=== PATIENT | female | born 1960 | race Caucasian/White ===

== ENCOUNTER → 2022-07-04 | Outpatient (CLI) | payer BC ==
--- NOTE | 2022-07-05 11:58 | MR ---
EXAMINATION TYPE: MR neck wo/w con DATE OF EXAM: 07/04/2022 3:52 PM COMPARISON: None CLINICAL INDICATION:Female, 62 years old with history of dysphagia; NECK PAIN AND HARD TIME SWALLOWI NG, PT STATED HAS SWELLING INSIDE THROAT TECHNIQUE: Multi planar, multi sequence imaging was performed of the neck soft tissues. MR contrast: IV Contrast: 8 cc Gadavist FINDINGS: Motion artifact limits evaluation. Tonsils bilaterally right greater than left. The glottis appears u nremarkable. Several nonenlarged anterior chain lymph nodes are identified, a prominent one on the r ight measures up to 8 mm in short axis. There is no evidence to suggest a soft tissue mass. The cervical vertebral bodies have preserved heights and alignment. The cervical spinal cord demonst rates a normal appearance. Right high T2 signal thyroid nodule measuring 11 mm. IMPRESSION: 1. Lingual tonsil enlargement bilaterally. Given patient's age further evaluation with direct visuali zation is recommended. 2. Prominent right neck lymph node measuring up to 8 mm in short axis. 3. Right thyroid nodule which can be further evaluated with thyroid ultrasound.
== END | disposition home or self-care (01) ==
LOC: RADMRIMAIN 13:57
PROVIDERS: ATTEND Otolaryngology
DX: J35.1 Hypertrophy of tonsils (principal); E04.1 Nontoxic single thyroid nodule
CPT/HCPCS: 70543; A9585

== ENCOUNTER 2022-07-29 11:09 | Day surgery (SDC) | payer BC ==
[2022-07-26 15:50] VITALS: BMI 28.3
--- NOTE | 2022-07-28 21:22 | HP ---
HISTORY AND PHYSICAL CHIEF COMPLAINT: Tonsillar mass/base of tongue mass. HISTORY OF PRESENT ILLNESS: This patient is a 62-year-old female who was recently seen in my office complaining of having issues with food getting stuck in her throat and also pills getting stuck in her throat. She denied any pain. The patient at the time she was seen in the office, stated that she had quit smoking approximately 2 or 3 years ago, but she still smokes occasionally. I advised her to quit smoking completely for obvious health reasons. A CT scan was performed at a primary care doctor's office and showed evidence of mild emphysema. In addition, barium swallow showed evidence of a bulging disk at C3 and C4 as well as some possible distal stricture of the esophagus. An MRI was subsequently performed and this showed evidence of bilateral enlargement of the tonsils and possible enlargement of the lingual tonsil. The patient states that she had both her tonsils and adenoids removed as a child. I advised the patient that sometimes tonsils are removed and tags are left behind which may eventually hypertrophy. The patient was not complaining of any sore throat or throat pain, but because of her history of continued smoking, it was recommended that she undergo a suspension microlaryngoscopy and biopsy of any tonsillar masses that are found. If in fact these are tonsillar tags, these will be removed. In addition to this, she will have several blind biopsies of the base of tongue. PAST MEDICAL HISTORY: Reveals the patient has no allergies to medications. PREVIOUS SURGERIES: Include tonsillectomy, adenoidectomy, cholecystectomy, left arthroscopic knee surgery, and hysterectomy. She has 3 para, 3 , 0 , 0 miscarriage. CURRENT MEDICATIONS: Include, 1. Singulair. 2. Prilosec. 3. Synthroid. 4. Lasix. 5. Norvasc. 6. Protonix. 7. She also uses an inhaler, the name of which she cannot recall. REVIEW OF SYSTEMS: Reveals, CARDIOVASCULAR: Positive for hypertension. RESPIRATORY: Positive for emphysema, possible asthma. GASTROINTESTINAL: Positive for GERD (gastroesophageal reflux disorder). METABOLIC/ENDOCRINE: Positive for hypothyroidism. Remainder of the review of systems is unremarkable. PHYSICAL EXAMINATION: GENERAL: The patient is a pleasant 62-year-old female who is alert and cooperative. HEENT: The patient is normocephalic. Tympanic membranes are normal. Middle ear space is free of any fluid or infection. Pupils are equal, round, and reactive to light and accommodation. Extraocular movements within normal limits. Intranasal examination reveals [id number]-ldqcqg septal deviation with compensatory hypertrophy of the inferior turbinates and a moderate amount of mucus on the mucous membranes draining down the posterior pharynx. Examination of the oropharynx is unremarkable. Attempted indirect laryngoscopy was not possible because of the patient's hyperactive gag reflex. NECK: Palpation of the neck is negative for any neck masses or lymphadenopathy. Cranial nerves 2 through 12, remainder of the head and neck exam is unremarkable. CHEST/CARDIOVASCULAR: Both lung dewitt are clear to percussion and auscultation. The patient is in regular sinus rhythm. S1 and S2 are present without any murmurs, S3s or S4s. Peripheral pulses are bilaterally symmetrical. ABDOMEN: No evidence of any masses, megaly, or tenderness. The abdomen is soft. SKIN: Unremarkable. MUSCULOSKELETAL: Within normal limits. NEUROLOGICAL: Within normal limits. PELVIC AND RECTAL: Deferred at this time because the patient has this done on a regular basis at her family physician's office. The remainder of physical exam is essentially unremarkable. IMPRESSION: Bilateral tonsillar mass/base of tongue mass. PLAN: The patient is scheduled to undergo a suspension microlaryngoscopy with biopsy of bilateral tonsillar mass and base of tongue mass and possible excision of tonsillar tags under general anesthesia in the a.m. Attention, RNs in the pre-surgical area: I have ordered for this patient to receive 1000 mg of Ofirmev IV to be given once an intravenous line has been established. In addition, I have ordered for this patient to receive 3 g of Ancef IV once the IV has been established. If the pharmacy department sends a different pre-surgical prophylactic antibiotic to the pre-surgical area for this patient, besides Ancef, please cancel that order and return the medication to the pharmacy department. Also please make sure that the patient's account is credited appropriately. INFORMED CONSENT: I have discussed the risks, benefits and alternative therapies for the above-mentioned procedure and for both sedation/analgesia as well as necessary blood product administration, if indicated, as they pertain to this patient. The patient has indicated her understanding and acceptance of the risks and procedures discussed. MMODL / IJN: [id number] /
[~2022-07-29 11:09] MED LIST: DEXAMETHASONE SOD PHOSPHATE 4 MG/ML 1 ML VIAL IV ONE; HYDROmorphone 0.5 MG/0.5 ML SYRINGE IVP PRN; LACTATED RINGERS 1,000 ML IV SCH; MIDAZOLAM 2 MG/2 ML VIAL IV PRN; ONDANSETRON 4 MG/2 ML VIAL IVP ONE; Pre Op ABX Message 1 EACH MISC MISCELLANE ONE; SCOPOLAMINE 1 MG/72 HR PATCH TRANSDERM ONE
[2022-07-29 12:06] VITALS: BP 129/77; PULSE 67; RESP 16; TEMP 97.8
[2022-07-29] MEDS ORDERED: ACETAMINOPHEN IV (For NPO) 1,000 MG in EMPTY BAG 1 BAG IVPB ONE (12:20)
== END 2022-07-29 13:38 | disposition home or self-care (01) ==
LOC: OR 11:09
PROVIDERS: ATTEND Otolaryngology
DX: D10.1 Benign neoplasm of tongue (principal); Z53.8 Procedure and treatment not carried out for other reasons
CPT/HCPCS: J1100; J2405

== ENCOUNTER 2022-09-01 12:24 | Day surgery (SDC) | payer BC ==
[2022-09-01 13:33] VITALS: RESP 18; TEMP 98.7
[2022-09-01 14:14] VITALS: BP 134/70; PULSE 66
--- NOTE | 2022-09-01 14:15 | US ---
ULTRASOUND GUIDED FNA THYROID BIOPSY: CLINICAL HISTORY: Right thyroid nodule FINDINGS: The procedure was explained to the patient. The risks, complications, benefits and alternatives were discussed and any questions were answered. Informed consent was obtained. Patient was placed supin e on the ultrasound table and prepped and draped in the usual sterile fashion. Utilizing a 25 gauge needle, five passes were made into the requested right thyroid nodule. Patient was stable throughout the procedure. Pathology is pending. All elements of maximal barrier technique were utilized. IMPRESSION: 1. Successful ultrasound guided FNA thyroid biopsy.
== END 2022-09-01 14:15 | disposition home or self-care (01) ==
LOC: RADPROMAIN 12:24
PROVIDERS: ATTEND Family Medicine
DX: E04.1 Nontoxic single thyroid nodule (principal)
CPT/HCPCS: 10005; 88173; 88305

== ENCOUNTER 2022-09-12 12:11 | Day surgery (SDC) | payer BC ==
[2022-09-08 12:09] VITALS: BMI 27.4
[~2022-09-12 12:11] MED LIST changes: -DEXAMETHASONE SOD PHOSPHATE 4 MG/ML 1 ML VIAL IV ONE; -HYDROmorphone 0.5 MG/0.5 ML SYRINGE IVP PRN; -MIDAZOLAM 2 MG/2 ML VIAL IV PRN; -ONDANSETRON 4 MG/2 ML VIAL IVP ONE; -Pre Op ABX Message 1 EACH MISC MISCELLANE ONE; -SCOPOLAMINE 1 MG/72 HR PATCH TRANSDERM ONE
[2022-09-12 13:06] VITALS: TEMP 96.9
[2022-09-12] MEDS ORDERED: LIDOCAINE 2% INJ 20 MG/ML (2 ML VIAL) ONE (14:25)
[2022-09-12] MEDS ORDERED: PROPOFOL 10 MG/ML 20 ML VIAL IV ONE (14:25)
--- NOTE | 2022-09-12 14:43 | P.OP ---
Date of Procedure: 09/12/22 Preoperative Diagnosis: GERD Postoperative Diagnosis: Antral gastritis Mild esophagitis No significant Hiatal hernia Procedure(s) Performed: EGD Anesthesia: MAC Surgeon: Shaheen Fink Pathology: other (Antrum) Condition: stable Disposition: PACU Description of Procedure: The patient's placed on the endoscopy table in the lateral position. She received IV sedation. The gastro-/oropharynx passed in the esophagus and stomach. Scope was then placed through the pylorus. The first and second portion of the duodenum appeared normal. Scope was then brought back the antrum this was mildly inflamed. A biopsies performed. The scope was then retroflexed and the remainder the stomach appeared normal. There was no significant hiatal hernia. The GE junction was at 40 cms. The distal esophagus appeared minimally inflamed. A biopsies performed. The proximal esophagus appeared normal. Scope withdrawn for patient.
[2022-09-12 14:51] VITALS: RESP 16
[2022-09-12 15:01] VITALS: BP 135/83; PULSE 83
== END 2022-09-12 15:19 | disposition home or self-care (01) ==
LOC: ORWHC2ENDO 12:11
PROVIDERS: ATTEND Surgery
DX: K29.50 Unspecified chronic gastritis without bleeding (principal); K21.00 Gastro-esophageal reflux disease with esophagitis, without bleeding; I10 Essential (primary) hypertension; J44.9 Chronic obstructive pulmonary disease, unspecified; M79.7 Fibromyalgia; G47.33 Obstructive sleep apnea (adult) (pediatric); Z90.710 Acquired absence of both cervix and uterus; Z90.49 Acquired absence of other specified parts of digestive tract; Z98.890 Other specified postprocedural states; Z87.891 Personal history of nicotine dependence; Z79.899 Other long term (current) drug therapy
CPT/HCPCS: 88305; 43239; J2704; J2001

== ENCOUNTER 2022-09-28 07:26 | Inpatient (IN) | payer BC, MEDICARE ==
[~2022-09-28 07:26] MED LIST changes: +ACETAMINOPHEN TAB 500 MG TAB PO PRN; +HEPARIN SODIUM,PORCINE/PF 5,000 UNIT/0.5 ML SYRINGE SQ PRN; -LACTATED RINGERS 1,000 ML IV SCH
[2022-09-28] MEDS ORDERED: LIDOCAINE 1% (10MG/ML) FOR IV START INTRADERMA PRN (08:02)
[2022-09-28] MEDS ORDERED: ONDANSETRON 4 MG/2 ML VIAL IVP ONE (08:02)
[2022-09-28] MEDS ORDERED: LACTATED RINGERS 1,000 ML IV ONE (08:06)
[2022-09-28] MEDS ORDERED: DEXAMETHASONE SOD PHOSPHATE 4 MG/ML 1 ML VIAL IVP ONE (08:25)
[2022-09-28 09:20] LABS: Basophils # (A) 0.1 k/uL (0-0.2); Basophils % (A) 1 %; Eosinophils # (A) 0.2 k/uL (0-0.7); Eosinophils % (A) 2 %; HCT 43.7 % (34.0-46.0); HGB 14.6 gm/dL (11.4-16.0); Lymphocytes # (A) 2.8 k/uL (1.0-4.8); Lymphocytes % (A) 26 %; MCH 29.6 pg (25.0-35.0); MCHC 33.4 g/dL (31.0-37.0); MCV 88.6 fL (80.0-100.0); Mean Platelet Volume 8.4; Monocytes # (A) 0.7 k/uL (0-1.0); Monocytes % (A) 7 %; Neutrophils # (A) 6.6 k/uL (1.3-7.7); Neutrophils % (A) 63 %; Platelet Count 285 k/uL (150-450); RBC 4.93 m/uL (3.80-5.40); RDW 12.8 % (11.5-15.5); WBC 10.5 k/uL (3.8-10.6)
[2022-09-28 09:22] LABS: African American GFR (CKD) >90 (>60 ml/min/1.73 sqM); Anion Gap 6 mmol/L; Blood Urea Nitrogen 9 mg/dL (7-17); Carbon Dioxide 26 mmol/L (22-30); Chloride 107 mmol/L (98-107); Glucose 103 mg/dL (74-99); Non-African American GFR(CKD) >90 (>60 ml/min/1.73 sqM); Potassium 4.7 mmol/L (3.5-5.1); Sodium 139 mmol/L (137-145)
[2022-09-28] MEDS ORDERED: LIDOCAINE 2% INJ 20 MG/ML (2 ML VIAL) ONE (09:40)
[2022-09-28] MEDS ORDERED: PROPOFOL 10 MG/ML 20 ML VIAL IV ONE (09:40)
[2022-09-28] MEDS ORDERED: SUCCINYLCHOLINE CHLORIDE 200 MG/10 ML VIAL IV ONE (09:40)
[2022-09-28] MEDS ORDERED: ROCURONIUM 10 MG/ML (5 ML VIAL) IV ONE (09:40)
[2022-09-28] MEDS ORDERED: GLYCOPYRROLATE 0.2 MG/ML 2 ML VIAL ONE (09:40)
[2022-09-28] MEDS ORDERED: NEOSTIGMINE 1 MG/ML 10 ML VIAL ONE (09:40)
[2022-09-28] MEDS ORDERED: MIDAZOLAM 2 MG/2 ML VIAL ONE (09:40)
[2022-09-28] MEDS ORDERED: fentaNYL (PF) 50 MCG/ML 2 ML AMP ONE (09:40)
[2022-09-28] MEDS ORDERED: KETAMINE 10 MG/ML 20 ML VIAL ONE (09:40)
[2022-09-28] MEDS ORDERED: BUPIVACAINE (PF) 0.25% 30 ML VIAL SQ ONE ×2 (10:11→10:34)
[2022-09-28] MEDS: LACTATED RINGERS 1,000 ML IV SCH (10:42)
--- NOTE | 2022-09-28 10:54 | P.OP ---
Date of Procedure: 09/28/22 Preoperative Diagnosis: GERD Postoperative Diagnosis: GERD Procedure(s) Performed: Laparoscopic Clyde fundoplication Anesthesia: SUKHDEV Surgeon: Shaheen Fink Estimated Blood Loss (ml): 5 Pathology: none sent Condition: stable Disposition: PACU Description of Procedure: Katherinehe patient was placed on the operating table in the supine position. The patient received general anesthesia. And was placed in dorsal lithotomy position. The patient was prepped and draped in the usual sterile fashion. The skin incision sites were anesthetized with 1% local Xylocaine. The skin was incised in the left periumbilical area and then using a blade less 5 mm trocar under direct visualization panel cavity was entered. After adequate insufflation the laparoscope was then placed into the peritoneal cavity. Next a 5 mm trochars placed in the right epigastric position. Another 5 millimeter trocar the right lateral position. Another 5 millimeter trocar in the left lateral position a 5 mm trocar is placed in the left epigastric position. And then the initial 5 mm trocar was exchanged for a 10 mm trocar. The left lateral lobe liver was retracted. The hernia was seen. The crural defect was then dissected using the Harmonic scissors device. A 360 crural dissection was performed the esophagus stomach was reduced back into the peritoneal Cavity. The crural defect was then closed using 2-0 Ethibond suture. Next the fundus of the stomach was mobilized using the [place] scissors device. and then a 58- Malagasy bougie dilator was placed oropharynx passed into the esophagus and stomach the fundal plication wrap was then performed by grasping the fundus posteriorly and bringing it around the esophagus and stomach fundoplication was then performed using 2-0 Ethibond suture. Care was taken that the fundal location rested over top of the intra-abdominal esophagus. There was no injury seen to the stomach or esophagus. The dilator was then withdrawn. The abdomen was irrigated there is no bleeding seen. The trochars were then withdrawn and then skin incision sites were closed using 3-0 Monocryl suture Steri-Strips are applied. Patient thought procedure well and sent to recovery room in stable condition.
[2022-09-28] MEDS ORDERED: ONDANSETRON 4 MG/2 ML VIAL IVP PRN (10:55)
[2022-09-28] MEDS: HYDROmorphone 0.5 MG/0.5 ML SYRINGE IVP PRN ×2 (11:05→11:21)
[2022-09-28] MEDS: D5-0.45% NACL WITH KCL 20MEQ/L 1,000 ML IV SCH (14:40)
[2022-09-28] MEDS: HYDROmorphone 1 MG/ML 1 ML SYRINGE IVP PRN ×2 (14:40→17:30)
[2022-09-28] MEDS: IPRATROPIUM-ALBUTEROL 3 ML NEB INHALATION SCH ×2 (16:34→20:35)
[2022-09-28] MEDS: PANTOPRAZOLE 40 MG TABLET PO SCH (17:30)
[2022-09-29] MEDS: D5-0.45% NACL WITH KCL 20MEQ/L 1,000 ML IV SCH ×2 (00:49→08:30)
--- NOTE | 2022-09-29 00:57 | CONS ---
CONSULTATION HISTORY OF PRESENT ILLNESS: A 62-year-old white female with consultation, status post Clyde fundoplication. The patient is breathing decent at this time. She has COPD, and difficulty breathing. She is exacerbated by chronic GERD, status post Clyde . Chest pain is minimal with air in the chest postop. She wants to increase her diet. HOME MEDICINES: Include, 1. Norvasc 10 mg daily. 2. Protonix 40 mg b.i.d. 3. Lasix 40 mg daily. 4. Vitamin D3 one weekly. 5. Breztri inhaler 2 puffs b.i.d. 6. Ventolin nebulizer b.i.d. CONDITION: Stable. PROGNOSIS: Guarded. Ambulate as tolerated. REVIEW OF SYSTEMS: A 14-point review of systems otherwise negative. PHYSICAL EXAMINATION: VITAL SIGNS: Pulse is 58, respiratory rate 16 to 18, blood pressure 130s over 60s to 70s, O2 of 97% on room air. LUNGS: Congestive cough, mild wheeze. CARDIOVASCULAR: S1, S2. HEMATOLOGY: Negative Homans. PSYCH: Fair mood and affect. NEUROLOGIC: Alert and oriented x3. OPHTHALMOLOGIC: Pupils equal, round, reactive. ASSESSMENT AND PLAN: Status post Clyde, chronic obstructive pulmonary disease, gastroesophageal reflux disease, hypertension. Continue home medications. Breathing treatments p.r.n. At this time, advance diet as tolerated. Condition stable. MMODL / IJN: [id number] /
[2022-09-29] MEDS: PANTOPRAZOLE 40 MG TABLET PO SCH (06:40)
[2022-09-29] MEDS ORDERED: HYDROcodone/APAP 5-325MG 1 EACH TAB PO PRN (07:55)
[2022-09-29] MEDS: LACTATED RINGERS 1,000 ML IV SCH (08:31)
[2022-09-29] MEDS ORDERED: amLODIPine 10 MG TAB PO SCH (09:00)
[2022-09-29] MEDS ORDERED: FUROSEMIDE 40 MG TAB PO SCH (09:00)
[2022-09-29] MEDS: IPRATROPIUM-ALBUTEROL 3 ML NEB INHALATION SCH ×2 (09:46→12:37)
[2022-09-29 11:20] VITALS: BMI 27.8
--- NOTE | 2022-09-29 13:12 | P.DS ---
Providers Date of admission: 09/28/22 07:26 Expected date of discharge: 09/29/22 Attending physician: Shaheen Fink Consults: 09/28/22 10:55 Consult Physician Routine Consulting Provider: Antolin Williamson Consult Reason/Comments: Medical management Do you want consulting provider notified?: Yes Primary care physician: Antolin Williamson [facility] Course: Discharge diagnosis 1. GERD Hospital course This is a 62-year-old female known history of GERD. She is status post laparoscopic Clyde fundoplication. Patient tolerated surgery well. Pain is controlled. She has been up and ambulating. She is tolerating diet. She is afebrile. She is having flatus. She is stable for discharge. Please refer to chart for further details. Physician Desizing Machine Operator note has been reviewed by physician. Signing provider agrees with the documented findings, assessment, and plan of care. Patient Condition at Discharge: Stable Plan - Discharge Summary Discharge Rx Participant: Yes New Discharge Prescriptions: New oxyCODONE HCL [OxyIR] 5 mg PO Q6H PRN 3 Days #12 tab PRN Reason: Pain Acetaminophen Tab [Tylenol Tab] 650 mg PO Q4H PRN #30 tablet PRN Reason: Pain Continue Furosemide [Lasix] 40 mg PO DAILY Albuterol Nebulized [Ventolin Nebulized] 2.5 mg INHALATION BID amLODIPine [Norvasc] 10 mg PO DAILY Cholecalciferol (Vitamin D3) [Vitamin D3] 1 cap PO WEEKLY Pantoprazole [Protonix] 40 mg PO BID Budesonide/Glycopyr/Formoterol [Breztri Aerosphere Inhaler] 1 puff INHALATION BID Discontinued Omeprazole 40 mg PO DAILY Discharge Medication List amLODIPine [Norvasc] 10 mg PO DAILY 07/26/22 [History] Cholecalciferol (Vitamin D3) [Vitamin D3] 1 cap PO WEEKLY 08/26/22 [History] Pantoprazole [Protonix] 40 mg PO BID 08/26/22 [History] Albuterol Nebulized [Ventolin Nebulized] 2.5 mg INHALATION BID 09/08/22 [History] Budesonide/Glycopyr/Formoterol [Breztri Aerosphere Inhaler] 1 puff INHALATION BID 09/08/22 [History] Furosemide [Lasix] 40 mg PO DAILY 09/08/22 [History] Acetaminophen Tab [Tylenol Tab] 650 mg PO Q4H PRN #30 tablet 09/29/22 [Rx] oxyCODONE HCL [OxyIR] 5 mg PO Q6H PRN 3 Days #12 tab 09/29/22 [Rx] Follow up Appointment(s)/Referral(s): Shaheen Fink MD [STAFF PHYSICIAN] - 1 Week Activity/Diet/Wound Care/Special Instructions: No driving while taking OxyIr No lifting over 10 pounds Shower daily. No soaking or tub baths for 2 weeks Very light activity until you are reevaluated at your follow up appointment with your surgeon Continue on a Full liquid diet until seen by surgeon Discharge Disposition: HOME SELF-CARE
[2022-09-29 13:33] VITALS: BP 122/67; PULSE 84; RESP 17; TEMP 98.6
== END 2022-09-29 14:27 | disposition home or self-care (01) | DRG 328 ==
LOC: 2ORMAIN 07:26 → 4SSUR 13:20
PROVIDERS: ADMIT Surgery; ATTEND Surgery
PROC: 0DV44ZZ Restriction of Esophagogastric Junction, Percutaneous Endoscopic Approach (ICD-10-PCS; principal; 2022-09-28 10:20)
DX: K21.00 Gastro-esophageal reflux disease with esophagitis, without bleeding (principal); J44.9 Chronic obstructive pulmonary disease, unspecified; I10 Essential (primary) hypertension; M79.7 Fibromyalgia; G47.30 Sleep apnea, unspecified; Z79.4 Long term (current) use of insulin; J45.909 Unspecified asthma, uncomplicated; Z79.899 Other long term (current) drug therapy; Z90.49 Acquired absence of other specified parts of digestive tract; Z90.710 Acquired absence of both cervix and uterus
CPT/HCPCS: 80048; 85025; 94640

== ENCOUNTER 2023-01-02 11:10 | Day surgery (SDC) | payer BC, MEDICARE ==
[2022-12-29 09:38] VITALS: BMI 24.1
[~2023-01-02 11:10] MED LIST changes: -ACETAMINOPHEN TAB 500 MG TAB PO PRN; -HEPARIN SODIUM,PORCINE/PF 5,000 UNIT/0.5 ML SYRINGE SQ PRN; +LACTATED RINGERS 1,000 ML IV SCH
[2023-01-02 12:05] VITALS: TEMP 98
[2023-01-02] MEDS ORDERED: LIDOCAINE 2% INJ 20 MG/ML (2 ML VIAL) ONE (13:16)
[2023-01-02] MEDS ORDERED: PROPOFOL 10 MG/ML 20 ML VIAL IV ONE (13:16)
--- NOTE | 2023-01-02 13:26 | P.OP ---
Date of Procedure: 01/02/23 Preoperative Diagnosis: Dysphagia Postoperative Diagnosis: Recurrent hiatal hernia GERD Procedure(s) Performed: EGD Anesthesia: MAC Surgeon: Shaheen Fink Pathology: other (Esophagus) Condition: stable Disposition: PACU Description of Procedure: The patient's placed on the endoscopy table in the lateral position. She received IV station. The gastro-/oropharynx passed in the esophagus and the stomach. Scope was placed through the pylorus. The first and second portion of the duodenum appeared normal. Scope was then brought back the antrum and this appeared normal.. Scope was then retroflexed. There appeared to be a small recurrent hiatal hernia. The GE junction was at 38 cm. The distal esophagus was minimal inflamed. Biopsies performed. The proximal esophagus appeared normal.
[2023-01-02 13:45] VITALS: RESP 16
[2023-01-02 14:30] VITALS: BP 145/92; PULSE 66
== END 2023-01-02 14:22 | disposition home or self-care (01) ==
LOC: ORWHC2ENDO 11:10
PROVIDERS: ATTEND Surgery
DX: K21.00 Gastro-esophageal reflux disease with esophagitis, without bleeding (principal); K44.9 Diaphragmatic hernia without obstruction or gangrene; I10 Essential (primary) hypertension; G47.33 Obstructive sleep apnea (adult) (pediatric); E07.9 Disorder of thyroid, unspecified; J45.909 Unspecified asthma, uncomplicated; M79.7 Fibromyalgia; Z79.51 Long term (current) use of inhaled steroids; Z79.899 Other long term (current) drug therapy
CPT/HCPCS: 88305; 43239; J2704; J2001

== ENCOUNTER → 2023-01-05 | Outpatient (CLI) | payer BC ==
--- NOTE | 2023-01-05 14:10 | FL ---
EXAMINATION TYPE: FL UGI air w esophagus DATE OF EXAM: 01/05/2023 CLINICAL INDICATION: 62-year-old female R13.19 DYSPHAGIA AND K21.9 GERD. Patient reports missing fund oplication in November. COMPARISON: None Total Fluoroscopy Time: 2 minutes 21 seconds DAP: 421.36 mGycm2. 118 images obtained. FINDINGS: The swallowing mechanism is normal and hypopharyngeal anatomy is preserved. The cervical and thoracic portions have a normal course and caliber. Mild tertiary peristaltic waves are noted. The mucosa is normal and no persistent filling defect is encountered. There is a prominent esophageal vestibule. This structure shows no gastric fold to suggest a recurren t hiatal hernia. Unable to identify any gastroesophageal reflux. There is mild fundal fold thickening. Otherwise, the stomach and duodenum are free of any persistent filling defect and demonstrate a richmond l mucosal pattern. IMPRESSION: 1. Mild age-related tertiary peristaltic waves. No evidence stricture, mucosal lesion, or obstruction is identified. 2. Slight gastric fundal fold thickening may reflect mild chronic gastritis. 3. No recurrent hiatal hernia seen.
== END | disposition home or self-care (01) ==
LOC: RADUSWWP 07:46
PROVIDERS: ATTEND Surgery
DX: K21.9 Gastro-esophageal reflux disease without esophagitis (principal); K31.89 Other diseases of stomach and duodenum; R13.10 Dysphagia, unspecified
CPT/HCPCS: 74246

== ENCOUNTER → 2024-01-11 | Outpatient (CLI) | payer BC ==
[~2024-01-11] MED LIST changes: -LACTATED RINGERS 1,000 ML IV SCH; +REGADENOSON 0.4 MG/5 ML SYRINGE IV PRN
--- NOTE | 2024-01-11 11:52 | CA ---
Lexiscan Nuclear Stress Test Report Name: Anahi Morton Exam Date: 01/11/2024 11:18 Exam Location: [facility] Stress Ht (in): 65 Wt (lb): 130 BSA: 1.65 Ordering Phys: Bernie Garcia MD Referring Phys: BERNIE GARCIA Technologist: MAYITO Age: 63 Gender: F : 1960 Procedure CPT: Indications: R94.31 ABNORMAL EKG ICD-10 Codes: Patient History: Abnormal EKG, Chest pain, shortness of breath and palpitations Medications: Meds past 24 hrs: Pretest Chest Pain: STRESS TEST Lexiscan Protocol Exercise Duration (min:sec): 02:[address] Depressions (mm): Angina Score: Winters Score: Resting HR (bpm): 60 Peak HR (bpm): 86 Resting BP (mmHg): 128 / 78 Peak BP (mmHg): 133 / 80 MPHR: 157 Target HR: 133 % MPHR: 55 METS: 1.0 Total Dose: Peak Dose: Atropine: Double Product: 31519 BP Response: Stress Termination: Infusion complete Stress Symptoms: No chest pain or symptoms Stress Summary: ECG ANALYSIS Resting ECG: Sinus rhythm. Normal conduction. No arrhythmias. Normal repolarization. Stress ECG: No ECG changes from baseline with Lexiscan infusion. Ventricular premature contraction. CONCLUSIONS No ECG evidence of ischemia with Lexiscan infusion. Nuclear test results to follow. Dr. Yocasta Boyce MD (Electronically Signed) Final Date: 11 January 2024 11:51
--- NOTE | 2024-01-12 08:08 | NM ---
EXAMINATION TYPE: NM stress lexiscan cardiolite DATE OF EXAM: 01/11/2024 COMPARISON: NONE CLINICAL INDICATION: Female, 63 years old with history of R94.31 abnormal EKG; TECHNIQUE: After the intravenous administration of 9.02 mCi Tc 99m Sestamibi - Cardiolite resting SP ECT images acquired 45 minutes post injection. The patient received 0.4mg Lexiscan, 25.8 mCi Tc 99m Sestamibi - Stress images obtained [address] injection FINDINGS: Review of stress and rest SPECT images demonstrates no distinct perfusion abnormality. Gated analysi s shows normal wall motion with an estimated left ventricular ejection fraction of 59 %. IMPRESSION: No scintigraphic evidence for reversible ischemia. [facility], , 01/12/2024 8:06 AM
--- NOTE | 2024-01-12 09:59 | CA ---
Transthoracic Echo Report Name: Anahi Morton Age: 63 Gender: F : 1960 Exam Date: 01/11/2024 11:25 Exam Location: [place] Stress Ht (in): 65 Wt (lb): 130 Ordering Physician: Antolin Williamson MD Attending/Referring Phys: Balancing Machine Set Up Worker Shanda Tillman RDCS Procedure CPT: Indications: R94.31 ABNORMAL EKG Cardiac Hx: Technical Quality: Fair Contrast 1: Total Dose (mL): Contrast 2: Total Dose (mL): MEASUREMENTS (Male / Female) Normal Values 2D ECHO LV Diastolic Diameter PLAX 4.7 cm 4.2 - 5.9 / 3.9 - 5.3 cm LV Systolic Diameter PLAX 3.2 cm IVS Diastolic Thickness 0.9 cm 0.6 - 1.0 / 0.6 - 0.9 cm LVPW Diastolic Thickness 1.1 cm 0.6 - 1.0 / 0.6 - 0.9 cm LV Relative Wall Thickness 0.4 RV Internal Dim ED PLAX 1.9 cm LA Systolic Diameter LX 3.3 cm 3.0 - 4.0 / 2.7 - 3.8 cm LV Diastolic Volume MOD BP 64.0 cm??? 67 - 155 / 56 - 104 cm??? LV Systolic Volume MOD BP 21.4 cm??? 22 - 58 / 19 - 49 cm??? LV Ejection Fraction MOD BP 66.6 % >= 55 % LV Cardiac Index MOD BP 2199.7 cm???/min???m??? LV Diastolic Volume MOD 4C 70.4 cm??? LV Systolic Volume MOD 4C 27.6 cm??? LV Ejection Fraction MOD 4C 60.8 % LV Cardiac Index MOD 4C 2211.1 cm???/min???m??? LV Diastolic Length 4C 7.6 cm LV Systolic Length 4C 6.5 cm LV Diastolic Volume MOD 2C 61.5 cm??? LV Systolic Volume MOD 2C 16.0 cm??? LV Ejection Fraction MOD 2C 74.0 % LV Cardiac Index MOD 2C 2349.0 cm???/min???m??? LV Diastolic Length 2C 7.5 cm LV Systolic Length 2C 6.1 cm LA Volume 43.9 cm??? 18 - 58 / 22 - 52 cm??? LA Volume Index 26.7 cm???/m??? 16 - 28 cm???/m??? M-MODE Aortic Root Diameter MM 3.2 cm LA Systolic Diameter MM 4.1 cm LA Ao Ratio MM 1.3 AV Cusp Separation MM 1.8 cm DOPPLER MV Area PHT 2.5 cm??? Mitral E Point Velocity 72.6 cm/s Mitral A Point Velocity 91.9 cm/s Mitral E to A Ratio 0.8 MV Deceleration Time 302.9 ms TR Peak Velocity 221.0 cm/s TR Peak Gradient 19.5 mmHg Right Ventricular Systolic Press 23.1 mmHg FINDINGS Left Ventricle Left ventricular ejection fraction is estimated at 55-60%. Left ventricular cavity size normal. Normal left ventricular systolic function with no obvious regional wall motion abnormalities. Right Ventricle Normal right ventricular size and function. Right ventricular systolic pressure within normal limits. Right Atrium Normal right atrial size. Left Atrium Normal left atrial size. Mitral Valve Structurally normal mitral valve. Mild mitral regurgitation. No mitral stenosis. Aortic Valve Trileaflet aortic valve. No aortic valve stenosis or regurgitation. Tricuspid Valve Structurally normal tricuspid valve. Mild tricuspid regurgitation. No tricuspid stenosis. Pulmonic Valve Structurally normal pulmonic valve. No pulmonic stenosis. Pericardium No pericardial or pleural effusion. Aorta Normal size aortic root and proximal ascending aorta. CONCLUSIONS 1. Normal left ventricular size and systolic function 2. Mild mitral and tricuspid regurgitation with no evidence of pulmonary hypertension Previewed by: Dr. Yocasta Boyce MD (Electronically Signed) Final Date: 12 January 2024 09:58
== END | disposition home or self-care (01) ==
LOC: RADNMMAIN 09:28
PROVIDERS: ATTEND Family Medicine
DX: I08.1 Rheumatic disorders of both mitral and tricuspid valves (principal)
CPT/HCPCS: 78452; 93017; 93306